=== PATIENT | male | born 1990 | race Two or more races ===

== ENCOUNTER 2025-08-17 14:32 | Emergency (ER) | payer OTHER, MEDICAID ==
[~2025-08-17] VITALS: Ht 175.3 cm; Wt 124.7 kg
[2025-08-17] MEDS: IV NS 0.9% 1,000 ML BAG IV ONE (14:57)
[2025-08-17 15:26] LABS: PLATELET COUNT (AUTO) 271 K/uL (150-450); RED BLOOD CELL COUNT(AUTO) 4.58 MIL/uL (4.5-6.0); RED CELL DISTRIBUTION WIDTH 15.0 % (11.5-15.0); WHITE BLOOD COUNT (AUTO) 16.3 K/uL (4.3-11.0)
[2025-08-17] MEDS ORDERED: ONDANSETRON HCL/PF 4 MG/2 ML VIAL ONE (15:30)
[2025-08-17 15:31] LABS: CALCIUM, SERUM 8.7 mg/dL (8.5-10.1); CREATININE 1.2 mg/dL (0.6-1.3); SODIUM SERUM 137.0 mmol/L (136-145); UREA NITROGEN, BLOOD 15.0 mg/dL (7-18)
[2025-08-17] MEDS: ONDANSETRON HCL/PF - ER 4 MG/2 ML VIAL IV ONE (15:31)
[2025-08-17 15:37] LABS: ASPARTATE AMINOTRANSFERASE 48.0 U/L (15-37); TOTAL PROTEIN, SERUM 7.3 g/dL (6.4-8.2)
[2025-08-17 16:41] VITALS: BP 115/81; TEMP 97.7; O2SAT 99
== END 2025-08-17 16:41 | disposition home or self-care (01) ==
LOC: ER 14:38
DX: F15.10 Other stimulant abuse, uncomplicated (principal); R51.9 Headache, unspecified; R42 Dizziness and giddiness; Z20.822 Contact with and (suspected) exposure to COVID-19
CPT/HCPCS: 99283; 96374; 71045; 96361; 87426; 87804 ×2; 85025; 80048; 80076; 36415; J2405; J7030

== ENCOUNTER 2025-10-26 22:30 | Emergency (ER) | payer OTHER ==
[~2025-10-26] VITALS: Ht 172.7 cm; Wt 124.7 kg
[2025-10-26 23:03] VITALS: TEMP 98.2
[2025-10-26 23:22] VITALS: BP 139/80; O2SAT 96
== END 2025-10-26 23:40 ==
LOC: ER 22:32
DX: F10.10 Alcohol abuse, uncomplicated (principal)